=== PATIENT | female | born 1985 | race Hispanic/Latino ===

== ENCOUNTER 2017-11-03 16:33 | Emergency (ER) | payer OTHER, SELFPAY ==
[2017-11-03] MEDS ORDERED: NA CHLORIDE 0.9% 1,000 ML ONE (17:03)
[2017-11-03] MEDS ORDERED: ONDANSETRON 4 MG/2 ML VIAL ONE (17:03)
[2017-11-03 17:10] LABS: Urine Blood 2+ (NEG); Urine Glucose NEGATIVE (NEG); Urine Protein NEGATIVE (NEG); Urine Specific Gravity <1.005 (1.005-1.030)
[2017-11-03] MEDS ORDERED: FAMOTIDINE 20 MG/2 ML VIAL IV ONE (17:25)
[2017-11-03 17:47] LABS: Absolute Lymphocytes (CBC) 1.8 K/uL (0.7-4.9); Absolute Monocytes 0.2 K/uL (0.1-1.3); Absolute Neutrophil 8.1 K/uL (1.8-8.0); Basophils % 0.4 % (0-1.3); Eosinophils % 0.1 % (0-4.4); Hematocrit 33.5 % (36.0-45.0); Lymphocytes % 17.8 % (15.3-44.8); MCH 25.5 pg (27.0-35.0); MPV 8.5 fL (7.6-11.3); Monocytes % 2.2 % (3.3-12.3); RBC Red Blood Cell Count 4.19 M/uL (3.86-4.86)
[2017-11-03 17:49] LABS: Bicarbonate 28 mEq/L (21-31); Glucose Level 123 mg/dL (65-120); Lipase 31 U/L (22-51); Potassium 3.7 mEq/L (3.6-5.0); Sodium Level 137 mEq/L (135-145)
[2017-11-03 17:54] LABS: Urine Bacteria <20 /HPF (<20); Urine Culture Reflex Order NOT NEEDED; Urine RBC <5 /HPF (NONE SEEN)
[2017-11-03 17:56] LABS: ALT/SGPT 20 IU/L (10-60); AST/SGOT 22 IU/L (10-42); Albumin 4.4 g/dL (3.2-5.5); Alkaline Phosphatase 38 IU/L (42-121); Amylase Level 47 U/L (28-100); BUN Blood Urea Nitrogen 9 mg/dL (6-20); Bilirubin Direct 0.1 mg/dL (0-0.2); Protein, Total 7.8 g/dL (6.0-8.3)
[2017-11-03] MEDS ORDERED: MAGNE/ALUM HYDROXD 30 ML UCUP ONE (18:16)
[2017-11-03] MEDS ORDERED: LIDOCAINE VISCOUS 2% SOLN 15 ML UDC ONE (18:16)
--- NOTE | 2017-11-03 18:35 | RAD REPORT ---
EXAM DESCRIPTION: US - Abdomen Exam Limited - 11/03/2017 6:17 pm CLINICAL HISTORY: Abdominal pain. COMPARISON: 11-01-16. FINDINGS: The gallbladder demonstrates no gallstones. No pericholecystic fluid or gallbladder wall t hickening. The common bile duct is normal measuring 3 mm. The liver demonstrates no findings of intrahepatic biliary dilatation. IMPRESSION: Unremarkable examination.
--- NOTE | 2017-11-03 19:05 | ER ---
Nurse's Notes [facility] Name: Radha Cisneros Age: 32 yrs Sex: Female : 1985 Arrival Date: 11/03/2017 Time: 16:37 Bed 14 Private MD: Diagnosis: Diarrhea, unspecified;Epigastric pain Presentation: 11/03 16:42 Presenting complaint: Patient states: I have been on abx for an ear infection since la1 and now I am having diarrhea, pt denies vomiting. Transition of care: patient was not received from another setting of care. Onset of symptoms was November 03, 2017. Initial Sepsis Screen: Does the patient meet any 2 criteria? No. Patient's initial sepsis screen is negative. Does the patient have a suspected source of infection? No. Patient's initial sepsis screen is negative. Care prior to arrival: None. 16:42 Method Of Arrival: Ambulatory la1 16:42 Acuity: WAYLON 3 la1 Triage Assessment: 17:24 General: Appears in no apparent distress. uncomfortable, Behavior is calm, cooperative. em Pain: Complains of pain in right upper quadrant Pain currently is 7 out of 10 on a pain scale. Quality of pain is described as throbbing. GI: Abdomen is flat, Abd is soft X 4 quads Abdomen is tender to palpation in right upper quadrant. 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 - Social history:: Smoking status: Patient/guardian denies using tobacco. Screenin:24 Abuse screen: Denies threats or abuse. Nutritional screening: No deficits noted. em Tuberculosis screening: No symptoms or risk factors identified. Fall Risk None identified. Assessment: 17:05 General: Appears in no apparent distress. uncomfortable, Behavior is calm, cooperative. em Pain: Complains of pain in right upper quadrant Pain currently is 7 out of 10 on a pain scale. Neuro: Level of Consciousness is awake, alert, obeys commands, Oriented to person, place, time, situation, Reports dizziness, weakness. Cardiovascular: Denies chest pain, Capillary refill < 3 seconds Patient's skin is warm and dry. Respiratory: Airway is patent Respiratory effort is even, unlabored, Respiratory pattern is regular, symmetrical, Breath sounds are clear bilaterally. GI: Abdomen is flat, Bowel sounds present X 4 quads. Abd is soft X 4 quads Abdomen is tender to palpation in right upper quadrant. : Urine is clear. EENT: No signs and/or symptoms were reported regarding the EENT system. Derm: Skin is intact, Skin is pink, warm \T\ dry. Musculoskeletal: Range of motion: intact in all extremities. 17:29 Reassessment: Patient appears in no apparent distress at this time. I agree with above iw assessment by Dax Madison LVN. 18:00 Reassessment: Patient appears in no apparent distress at this time. Patient and/or em family updated on plan of care and expected duration. Pain level reassessed. Patient is alert, oriented x 3, equal unlabored respirations, skin warm/dry/pink. 18:55 Reassessment: Patient appears in no apparent distress at this time. pt given water for em PO challenge, tolerated well, c/o of pain, ARGENIS Gill notified. 19:20 Reassessment: Patient appears in no apparent distress at this time. Patient is alert, aa1 oriented x 3, equal unlabored respirations, skin warm/dry/pink. Discussed d/c \T\ f/u instructions with pt; denies questions or concerns at this time Patient states feeling better. Vital Signs: 16:43 BP 117 / 85; Pulse 85; Resp 16; Temp 97.8; Pulse Ox 100% on R/A; Weight 58.97 kg (R); la1 Height 5 ft. 6 in. (167.64 cm); 17:22 BP 119 / 83 Supine; Pulse 59; Resp 20; Pulse Ox 99% on R/A; em 17:22 BP 119 / 86 Sitting; Pulse 62; Resp 20; Pulse Ox 100% on R/A; em 17:22 BP 127 / 95 Standing; Pulse 75; Resp 18; Pulse Ox 100% on R/A; em 18:00 BP 115 / 78; Pulse 57; Resp 16; Pulse Ox 98% on R/A; Pain 7/10; em 18:44 BP 121 / 78; Pulse 56; Resp 18; Pulse Ox 100% on R/A; em 16:43 Body Mass Index 20.98 (58.97 kg, 167.64 cm) la1 ED Course: 16:37 Patient arrived in ED. mr 16:42 Triage completed. la1 16:43 Arm band placed on right wrist. la1 16:44 Jairo Garza PA is PHCP. cp 16:44 Henok Kay MD is Attending Physician. cp 16:44 Akua Burkett FNP-C is PHCP. snw 16:59 Dax Madison LVN is Primary Nurse. em 17:10 No provider procedures requiring assistance completed. Initial lab(s) drawn, by me, em sent to lab. Urine collected: clean catch specimen, clear. Inserted saline lock: 20 gauge in right antecubital area, using aseptic technique. Blood collected. 17:31 Patient has correct armband on for positive identification. Placed in gown. Bed in low em position. Call light in reach. Side rails up X2. Adult w/ patient. 17:35 Radiology exam delayed due to EKG being done. ap2 18:00 Ultrasound completed. Patient tolerated well. ap2 19:30 IV discontinued, intact, bleeding controlled, No redness/swelling at site. Pressure aa1 dressing applied. Administered Medications: 17:03 Drug: Zofran 4 mg Route: IVP; Site: right antecubital; hj 17:44 Follow up: Response: No adverse reaction hj 17:26 Drug: Pepcid 20 mg Route: IVP; Site: right antecubital; hj 17:44 Follow up: Response: No adverse reaction hj 17:33 Drug: NS 0.9% 1000 ml Route: IV; Rate: 1 bolus; Site: right antecubital; em 17:44 Follow up: IV Status: Completed infusion hj 18:22 Drug: GI Cocktail without - (Maalox Suspension 30 ml, Lidocaine Liquid 2 % 15 iw ml) Route: PO; 19:32 Follow up: Response: No adverse reaction; Marked relief of symptoms aa1 19:15 Drug: Bentyl 20 mg Route: PO; aa1 19:33 Follow up: Response: Medication administered at discharge. aa1 Outcome: 19:04 Discharge ordered by . cp 19:30 Discharged to home ambulatory. aa1 19:30 Condition: good 19:30 Discharge instructions given to patient, Instructed on discharge instructions, follow up and referral plans. medication usage, Demonstrated understanding of instructions, follow-up care, medications, Prescriptions given X 3. 19:33 Patient left the ED. aa1 Signatures: Dispatcher [employer] EDAnia Walls RN RN aa1 Akua Burkett, SUPERVISOR SHEARING-C SUPERVISOR SHEARING-Csnw Aminata Gonzalez mr Los, Dax, BOX WORKER BOX WORKER em Barb Hewitt, Crispin Somers RN RN RN la1 Daniel Crawford RN Jairo Cody PA PA cp Pena, Abigail ap2 Corrections: (The following items were deleted from the chart) 18:17 17:40 Radiology exam delayed due to EKG being done ap2 ap2 18:17 18:17 In radiology for Abdomen Limited+US.RAD.MONIZ. EDMS ap2
--- NOTE | 2017-11-03 19:05 | EDPHYS ---
Physician Documentation [facility] Name: Radha Cisneros Age: 32 yrs Sex: Female : 1985 Arrival Date: 11/03/2017 Time: 16:37 Bed 14 Private MD: ED Physician Henok Kay HPI: 11/03 17:02 This 32 yrs old Female presents to ER via Ambulatory with complaints of cp Abdominal Pain, Diarrhea, Ear Pain. 17:02 The patient presents with abdominal pain in the epigastric area. cp 17:02 Onset: The symptoms/episode began/occurred yesterday. Associated signs and symptoms: cp Pertinent positives: diarrhea since yesterday. 17:02 Patient reports she was started on oral azithromycin and prednisone this past cp for ear infection. Denies vomiting. Reports continuous diarrhea since yesterday and epigastric abdominal pain. 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 - Social history:: Smoking status: Patient/guardian denies using tobacco. ROS: 17:10 Constitutional: Negative for body aches, chills, fever, poor PO intake. cp 17:10 Eyes: Negative for injury, pain, redness, and discharge. cp 17:10 ENT: Negative for drainage from ear(s), ear pain, sore throat, difficulty swallowing, difficulty handling secretions. 17:10 Cardiovascular: Negative for edema, palpitations. 17:10 Respiratory: Negative for cough, shortness of breath, wheezing. 17:10 Abdomen/GI: Positive for abdominal pain, nausea, diarrhea, anorexia, of the epigastric area, Negative for vomiting, constipation, black/tarry stool, rectal bleeding. 17:10 Back: Negative for pain at rest, pain with movement, radiated pain. 17:10 : Positive for vaginal bleeding, Negative for urinary symptoms, flank pain. 17:10 Skin: Negative for cellulitis, rash. 17:10 Neuro: Negative for altered mental status, gait disturbance, headache, syncope, near syncope, weakness. 17:10 All other systems are negative. Exam: 17:23 Constitutional: The patient appears in no acute distress, alert, awake, cp non-diaphoretic, non-toxic, well developed, well nourished. 17:23 Head/Face: Normocephalic, atraumatic. Eyes: Pupils equal round and reactive to light, cp extra-ocular motions intact. Lids and lashes normal. Conjunctiva and sclera are non-icteric and not injected. Cornea within normal limits. Periorbital areas with no swelling, redness, or edema. ENT: Nares patent. No nasal discharge, no septal abnormalities noted. Tympanic membranes are normal and external auditory canals are clear. Oropharynx with no redness, swelling, or masses, exudates, or evidence of obstruction, uvula midline. Mucous membranes moist. Chest/axilla: Normal chest wall appearance and motion. Nontender with no deformity. No lesions are appreciated. 17:23 Cardiovascular: Rate: normal, Rhythm: regular. 17:23 Respiratory: the patient does not display signs of respiratory distress, Respirations: normal, no use of accessory muscles, no retractions, no splinting, no tachypnea, labored breathing, is not present, Breath sounds: are clear throughout, no decreased breath sounds, no stridor, no wheezing. 17:23 Abdomen/GI: Inspection: abdomen appears normal, Bowel sounds: active, all quadrants, Palpation: soft, in all quadrants, moderate abdominal tenderness, in the epigastric area, rebound tenderness, is not appreciated, voluntary guarding, is not appreciated, involuntary guarding, is not appreciated. 17:23 Back: CVA tenderness, is absent. 17:23 Skin: cellulitis, is not appreciated, no rash present. 17:23 Neuro: Orientation: to person, place \T\ time. Mentation: is normal, Cerebellar function: is grossly normal, Motor: moves all fours, strength is normal. 17:55 ECG was reviewed by the Attending Physician. cp Vital Signs: 16:43 BP 117 / 85; Pulse 85; Resp 16; Temp 97.8; Pulse Ox 100% on R/A; Weight 58.97 kg (R); la1 Height 5 ft. 6 in. (167.64 cm); 17:22 BP 119 / 83 Supine; Pulse 59; Resp 20; Pulse Ox 99% on R/A; em 17:22 BP 119 / 86 Sitting; Pulse 62; Resp 20; Pulse Ox 100% on R/A; em 17:22 BP 127 / 95 Standing; Pulse 75; Resp 18; Pulse Ox 100% on R/A; em 18:00 BP 115 / 78; Pulse 57; Resp 16; Pulse Ox 98% on R/A; Pain 7/10; em 18:44 BP 121 / 78; Pulse 56; Resp 18; Pulse Ox 100% on R/A; em 16:43 Body Mass Index 20.98 (58.97 kg, 167.64 cm) la1 MDM: 16:45 Patient medically screened. cp 18:00 Differential diagnosis: cholecystitis, Cholelithiasis, Peptic Ulcer Disease, Perf. cp Duodenal Ulcer, Perf. Gastric Ulcer, urinary tract infection, gastritis. 19:00 Data reviewed: vital signs, nurses notes, lab test result(s), EKG, radiologic studies, cp ultrasound. 19:00 Test interpretation: by ED physician or midlevel provider: ECG. cp 19:01 ED course: VSS. Labs and US reviewed. Recommend stopping antibiotic, which should cp improve diarrhea, and will discharge to home for continued monitoring. 19:01 Special discussion: Based on the patient's Hx, exam, and Dx evaluation, there is no cp indication for emergent surgery or inpatient Tx. It is understood by the patient/guardian that if the Sx's persist or worsen they need to return immediately for re-evaluation. 11/03 17:01 Order name: Amylase, Serum; Complete Time: 18:22 cp 11/03 17:01 Order name: Basic Metabolic Panel; Complete Time: 18:22 cp 11/03 18:22 Interpretation: Normal except: GLUC 123. cp 11/03 17:01 Order name: CBC with Diff; Complete Time: 18:22 cp 11/03 18:22 Interpretation: Normal except: HGB 10.7; HCT 33.5; MCH 25.5; MCHC 31.9; BREANN% 79.5; MN% cp 2.2; NEUT A 8.1. 11/03 17:01 Order name: Creatinine for Radiology; Complete Time: 18:22 cp 11/03 17:01 Order name: Hepatic Function; Complete Time: 18:22 cp 11/03 17:01 Order name: Lipase; Complete Time: 18:22 cp 11/03 17:01 Order name: Urine Microscopic Only; Complete Time: 18:22 cp 11/03 17:02 Order name: US Abdomen Limited; Complete Time: 18:36 cp 11/03 18:36 Interpretation: Report reviewed. cp 11/03 17:08 Order name: Urine Dipstick--Ancillary (enter results); Complete Time: 18:22 la1 11/03 17:08 Order name: Test, Serum; Complete Time: 18:22 la1 11/03 17:01 Order name: Urine Test (obtain specimen); Complete Time: 17:35 cp 11/03 17:01 Order name: IV Saline Lock; Complete Time: 17:35 cp 11/03 17:01 Order name: Labs collected and sent; Complete Time: 17:35 cp 11/03 17:01 Order name: Urine Dipstick-Ancillary (obtain specimen); Complete Time: 17:35 cp 11/03 17:02 Order name: NPO; Complete Time: 17:03 cp 11/03 17:28 Order name: EKG; Complete Time: 17:29 cp 11/03 17:28 Order name: EKG - Nurse/Tech; Complete Time: 17:59 cp 11/03 18:36 Order name: PO challenge; Complete Time: 18:47 cp EC:55 Rate is 56 beats/min. Rhythm is regular. TN interval is normal. QRS interval is normal. cp QT interval is normal. No ST changes noted. Interpreted by me. Reviewed by me. Administered Medications: 17:03 Drug: Zofran 4 mg Route: IVP; Site: right antecubital; hj 17:44 Follow up: Response: No adverse reaction hj 17:26 Drug: Pepcid 20 mg Route: IVP; Site: right antecubital; hj 17:44 Follow up: Response: No adverse reaction hj 17:33 Drug: NS 0.9% 1000 ml Route: IV; Rate: 1 bolus; Site: right antecubital; em 17:44 Follow up: IV Status: Completed infusion hj 18:22 Drug: GI Cocktail without - (Maalox Suspension 30 ml, Lidocaine Liquid 2 % 15 iw ml) Route: PO; 19:32 Follow up: Response: No adverse reaction; Marked relief of symptoms aa1 19:15 Drug: Bentyl 20 mg Route: PO; aa1 19:33 Follow up: Response: Medication administered at discharge. aa1 Disposition: 11/03/17 19:04 Discharged to Home. Impression: Diarrhea, unspecified, Epigastric pain. - Condition is Stable. - Discharge Instructions: Abdominal Pain, Adult, Food Choices to Help Relieve Diarrhea, Adult, Diarrhea. - Prescriptions for Bentyl 20 mg Oral Tablet - take 2 tablet by ORAL route every 6 hours As needed; 40 tablet. Zofran 4 mg Oral Tablet - take 1 tablet by ORAL route every 12 hours As needed; 20 tablet. Pepcid 20 mg Oral Tablet - take 1 tablet by ORAL route every 12 hours for 10 days; 20 tablet. - Work release form, Medication Reconciliation Form, Thank You Letter, Antibiotic Education, Prescription Opioid Use form. - Follow up: Private Physician; When: 1 - 2 days; Reason: if symptoms continue. - Problem is new. - Symptoms have improved. - Notes: stop antibiotic Addendum: 11/12/2017 05:56 Co-signature as Attending Physician, Henok Kay MD I agree with the assessment and w a plan of care. Signatures: Dispatcher [employer] Ania Gaona RN RN aa1 Dax Madison, PET CARE ATTENDANT PET CARE ATTENDANT em Barb Hewitt RN RN iw Attema, Lee, RN RN la1 Daniel Crawford RN Jairo Cody PA PA Henok Hartman MD MD in Corrections: (The following items were deleted from the chart) 11/03 19:33 19:04 11/03/2017 19:04 Discharged to Home. Impression: Diarrhea, unspecified; aa1 Epigastric pain. Condition is Stable. Forms are Medication Reconciliation Form, Thank You Letter, Antibiotic Education, Prescription Opioid Use. Follow up: Private Physician; When: 1 - 2 days; Reason: if symptoms continue. Problem is new. Symptoms have improved. cp
[2017-11-03] MEDS ORDERED: DICYCLOMINE HCL 10 MG CAP ONE (19:14)
--- NOTE | 2017-11-04 07:43 | EKG ---
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
== END 2017-11-03 19:33 | disposition home or self-care (01) ==
LOC: ER 16:33
DX: R19.7 Diarrhea, unspecified (principal)
CPT/HCPCS: 36415; 76705; 80048; 80076; 81003; 81015; 82150; 83690; 84703; 85025; 93005; 96374; 96375; 99284; J2405; J7030

== ENCOUNTER 2018-01-17 09:02 | Emergency (ER) | payer OTHER ==
[2018-01-17] MEDS ORDERED: NA CHLORIDE 0.9% 2,000 ML ONE (09:56)
[2018-01-17] MEDS ORDERED: ONDANSETRON 4 MG/2 ML VIAL ONE (09:56)
[2018-01-17] MEDS ORDERED: FENTANYL CITR 100 MCG/2 ML ONE (09:56)
[2018-01-17] MEDS ORDERED: KETOROLAC 30 MG/ML INJ ONE (09:56)
[2018-01-17 10:05] LABS: Absolute Lymphocytes (CBC) 2.6 K/uL (0.7-4.9); Absolute Monocytes 0.8 K/uL (0.1-1.3); Absolute Neutrophil 11.1 K/uL (1.8-8.0); Basophils % 0.2 % (0-1.3); Hematocrit 35.8 % (36.0-45.0); MCH 25.3 pg (27.0-35.0); MCV 78.5 fL (80-100); MPV 8.3 fL (7.6-11.3); Monocytes % 5.8 % (3.3-12.3); RBC Red Blood Cell Count 4.56 M/uL (3.86-4.86)
[2018-01-17 10:08] LABS: Urine Bacteria <20 /HPF (<20); Urine Culture Reflex Order NOT NEEDED; Urine RBC <5 /HPF (NONE SEEN)
--- NOTE | 2018-01-17 10:11 | RAD REPORT ---
EXAM DESCRIPTION: RAD - Chest Single View - 01/17/2018 10:04 am CLINICAL HISTORY: FEVER Chest pain. COMPARISON: No comparisons FINDINGS: Portable technique limits examination quality. The lungs are grossly clear. The heart is normal in size. No displaced fractures. IMPRESSION: No acute intrathoracic process suspected.
[2018-01-17 10:20] LABS: Bilirubin Direct 0.1 mg/dL (0-0.2); Bilirubin Total 0.6 mg/dL (0.2-1.0); Potassium 4.3 mmol/L (3.5-5.1); Protein, Total 8.2 g/dL (6.4-8.2)
--- NOTE | 2018-01-17 11:48 | RAD REPORT ---
EXAM DESCRIPTION: CTAbdomen Pelvis W Contrast - 01/17/2018 11:32 am CLINICAL HISTORY: Abdominal pain. ABD PAIN COMPARISON: Abdomen Pelvis W Contrast dated 11/05/2016; Abdomen Exam Limited dated 11/03/2017 TECHNIQUE: Biphasic CT imaging of the abdomen and pelvis was performed with 100 ml non-ionic IV cont rast. All CT scans are performed using dose optimization technique as appropriate and may include automated exposure control or mA/KV adjustment according to patient size. FINDINGS: The lung bases are clear. The liver, spleen, pancreas, adrenal glands and kidneys are within normal limits. No bowel obstruction, free air, intra-abdominal free fluid or abscess. The appendix is normal. No e vidence of significant lymphadenopathy. No suspicious bony findings. Uterus and cervix appears somewhat edematous/boggy. Trace pelvic free fluid. IMPRESSION: The uterus and cervix appears somewhat boggy with trace pelvic free fluid. Advise clinic al correlation for the possibility of gynecologic inflammation or infection.
[2018-01-17 12:06] LABS: Urine Blood TRACE (NEG); Urine Glucose NEGATIVE (NEG); Urine Protein NEGATIVE (NEG); Urine Specific Gravity 1.025 (1.005-1.030); Urine pH 6.5 (5.0-7.0)
[2018-01-17] MEDS ORDERED: DOXYCYCLINE 100 MG CAP PO ONE (12:09)
[2018-01-17] MEDS ORDERED: CEFTRIAXONE/SWI 2gm 2 GM/20 ML SYR IV ONE (12:15)
[2018-01-17] MEDS ORDERED: AZITHROMYCIN 250 MG TAB ONE (12:23)
--- NOTE | 2018-01-17 12:27 | EDPHYS ---
Physician Documentation [facility] Name: Radha Cisneros Age: 32 yrs Sex: Female : 1985 Arrival Date: 01/17/2018 Time: 09:06 Bed 15 Private MD: ED Physician Jairo Ramirez HPI: 01/17 09:35 This 32 yrs old Female presents to ER via Ambulatory with complaints of Back tami Pain, Fever, Urinary Problem - antibiotics not working. 09:35 The patient presents with pain that is acute. The symptoms are located in the left mid tami back and right mid back. Onset: The symptoms/episode began/occurred 5 day(s) ago. 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 - Social history:: Smoking status: Patient/guardian denies using tobacco, Patient/guardian denies using alcohol. - Ebola Screening: : Patient negative for fever greater than or equal to 101.5 degrees Fahrenheit, and additional compatible Ebola Virus Disease symptoms Patient denies exposure to infectious person Patient denies travel to an Ebola-affected area in the 21 days before illness onset. - Family history:: not pertinent. ROS: 09:35 Constitutional: Negative for fever, chills, and weight loss, Eyes: Negative for injury, tami pain, redness, and discharge, ENT: Negative for injury, pain, and discharge, Neck: Negative for injury, pain, and swelling, Cardiovascular: Negative for chest pain, palpitations, and edema, Respiratory: Negative for shortness of breath, cough, wheezing, and pleuritic chest pain, : Negative for injury, bleeding, discharge, and swelling, MS/Extremity: Negative for injury and deformity, Skin: Negative for injury, rash, and discoloration, Neuro: Negative for headache, weakness, numbness, tingling, and seizure, Psych: Negative for depression, anxiety, suicide ideation, homicidal ideation, and hallucinations, Allergy/Immunology: Negative for hives, rash, and allergies, Endocrine: Negative for neck swelling, polydipsia, polyuria, polyphagia, and marked weight changes, Hematologic/Lymphatic: Negative for swollen nodes, abnormal bleeding, and unusual bruising. 09:35 Abdomen/GI: Positive for abdominal pain. Exam: 09:35 Constitutional: This is a well developed, well nourished patient who is awake, alert, tami and in no acute distress. Head/Face: Normocephalic, atraumatic. Eyes: Pupils equal round and reactive to light, extra-ocular motions intact. Lids and lashes normal. Conjunctiva and sclera are non-icteric and not injected. Cornea within normal limits. Periorbital areas with no swelling, redness, or edema. ENT: Nares patent. No nasal discharge, no septal abnormalities noted. Tympanic membranes are normal and external auditory canals are clear. Oropharynx with no redness, swelling, or masses, exudates, or evidence of obstruction, uvula midline. Mucous membranes moist. Neck: Trachea midline, no thyromegaly or masses palpated, and no cervical lymphadenopathy. Supple, full range of motion without nuchal rigidity, or vertebral point tenderness. No Meningismus. Chest/axilla: Normal chest wall appearance and motion. Nontender with no deformity. No lesions are appreciated. Cardiovascular: Regular rate and rhythm with a normal S1 and S2. No gallops, murmurs, or rubs. Normal PMI, no JVD. No pulse deficits. Respiratory: Lungs have equal breath sounds bilaterally, clear to auscultation and percussion. No rales, rhonchi or wheezes noted. No increased work of breathing, no retractions or nasal flaring. Female : Normal external genitalia. Skin: Warm, dry with normal turgor. Normal color with no rashes, no lesions, and no evidence of cellulitis. MS/ Extremity: Pulses equal, no cyanosis. Neurovascular intact. Full, normal range of motion. Neuro: Awake and alert, GCS 15, oriented to person, place, time, and situation. Cranial nerves II-XII grossly intact. Motor strength 5/5 in all extremities. Sensory grossly intact. Cerebellar exam normal. Normal gait. Psych: Awake, alert, with orientation to person, place and time. Behavior, mood, and affect are within normal limits. 09:35 Abdomen/GI: Inspection: abdomen appears normal, Bowel sounds: active, Palpation: mild abdominal tenderness, moderate abdominal tenderness, in the right upper quadrant and left upper quadrant, Liver: no appreciated palpable abnormalities, Hernia: not appreciated. 12:31 : Pelvic Exam: External exam: is normal, Speculum exam: no bleeding is noted, snw cervicitis present, os that is closed, bimanual exam reveals cervical motion tenderness, no adnexa tenderness or masses bilaterally, discharge, yellow, the photographic technician was present for the exam. Vital Signs: 09:20 BP 113 / 27; Pulse 73; Resp 18; Temp 98.1(O); Pulse Ox 100% ; Weight 58.06 kg; Height 5 hj ft. 6 in. (167.64 cm); Pain 6/10; 10:40 BP 121 / 82; Pulse 65; Resp 18; Pulse Ox 100% on R/A; hj 09:20 Body Mass Index 20.66 (58.06 kg, 167.64 cm) hj MDM: 09:08 Patient medically screened. [facility] 09:37 Data reviewed: vital signs, nurses notes, lab test result(s), EKG, radiologic studies, [facility] CT scan, plain films. 01/17 09:23 Order name: Urine Microscopic Only; Complete Time: 10:28 01/17 09:23 Order name: Urine Culture 01/17 09:32 Order name: Urine Dipstick--Ancillary (enter results); Complete Time: 12:25 01/17 09:32 Order name: Urine --Ancillary (enter results); Complete Time: 12:25 01/17 09:34 Order name: Amylase, Serum; Complete Time: 10:28 [facility] 01/17 09:34 Order name: Basic Metabolic Panel; Complete Time: 10:28 [facility] 01/17 09:34 Order name: CBC with Diff; Complete Time: 10:28 [facility] 01/17 09:34 Order name: Creatinine for Radiology; Complete Time: 10:28 [facility] 01/17 09:34 Order name: Hepatic Function; Complete Time: 10:28 [facility] 01/17 09:34 Order name: Lipase; Complete Time: 10:28 [facility] 01/17 09:34 Order name: Blood Culture Adult (2) [facility] 01/17 12:35 Order name: GC (GONORR/CHLAMYDIA) Probe 01/17 12:35 Order name: Wet Prep 01/17 09:23 Order name: Urine Dipstick-Ancillary (obtain specimen); Complete Time: 09:23 01/17 09:23 Order name: Urine Test (obtain specimen); Complete Time: 09: 01/17 09:34 Order name: IV Saline Lock; Complete Time: 10:03 [facility] 01/17 09:34 Order name: Labs collected and sent; Complete Time: 10:03 [facility] 01/17 09:34 Order name: Chest Single View XRAY; Complete Time: 10:28 [facility] 01/17 09:34 Order name: CT Abd/Pelvis - W/Contrast; Complete Time: 12:25 [facility] 01/17 12:02 Order name: Pelvic Exam Setup; Complete Time: 12:04 [facility] Administered Medications: 09:45 Drug: NS 0.9% 1000 ml Route: IV; Rate: 1 bolus; Site: right antecubital; hj 10:05 Follow up: IV Status: Completed infusion hj 09:45 Drug: NS 0.9% 1000 ml Route: IV; Rate: 125 ml/hr; Site: right antecubital; hj 10:05 Follow up: IV Status: Infusion continued hj 09:45 Drug: fentaNYL (PF) 25 mcg Route: IVP; Site: right antecubital; hj 10:05 Follow up: Response: No adverse reaction; Pain is decreased hj 09:45 Drug: Zofran 4 mg Route: IVP; Site: right antecubital; hj 10:05 Follow up: Response: No adverse reaction hj 09:45 Drug: TORadol 30 mg Route: IVP; Site: right antecubital; hj 10:04 Follow up: Response: No adverse reaction hj 12:02 Drug: Doxycycline 200 mg Route: PO; hj 12:17 Follow up: Response: No adverse reaction hj 12:16 Drug: Zithromax 1 grams Route: PO; hj 12:22 Follow up: Response: No adverse reaction hj 12:17 Drug: fentaNYL (PF) 25 mcg Route: IVP; Site: right antecubital; hj 12:17 Follow up: Response: No adverse reaction; Pain is decreased hj 12:22 Drug: Rocephin - (cefTRIAXone) 2 grams Route: IVPB; Infused Over: 30 mins; Site: right hj antecubital; 12:55 Follow up: IV Status: Completed infusion Disposition: 01/17/18 12:26 Discharged to Home. Impression: Pelvic and perineal pain. - Condition is Stable. - Discharge Instructions: Cervicitis, Pelvic Pain, Female, Pelvic Pain, Female, Uobi-ej-Xchy, Abdominal Pain, Adult, [id number], Cervicitis, [id number]. - Prescriptions for Ibuprofen 600 mg Oral Tablet - take 1 tablet by ORAL route every 8 hours As needed take with food; 21 tablet. Doxycycline Hyclate 100 mg Oral Tablet - take 1 tablet by ORAL route every 12 hours; 20 tablet. Flagyl 500 mg Oral Tablet - take 1 tablet by ORAL route every 8 hours for 10 days; 30 tablet. - Medication Reconciliation Form, Thank You Letter, Antibiotic Education, Prescription Opioid Use, Work release form, Family Work Release form. - Follow up: Private Physician; When: 2 - 3 days; Reason: Recheck today's complaints, Continuance of care, Re-evaluation by your physician. Follow up: Adenike Abarca MD; When: 2 - 3 days; Reason: Recheck today's complaints, Re-evaluation by your physician. - Problem is new. - Symptoms have improved. Addendum: 01/20/2018 10:06 Co-signature as Attending Physician, Jairo Ramirez MD I agree with the assessment and c ornelas plan of care. Signatures: Dispatcher [employer] EDJairo Lux MD MD cha Therrien, Shelly, MARCELO-C VEGETABLE I FARMWORKER-CsnDaniel Perez RN RN hj Corrections: (The following items were deleted from the chart) 01/17 12:54 12:26 01/17/2018 12:26 Discharged to Home. Impression: Pelvic and perineal pain. hj Condition is Stable. Forms are Medication Reconciliation Form, Thank You Letter, Antibiotic Education, Prescription Opioid Use. Follow up: Private Physician; When: 2 - 3 days; Reason: Recheck today's complaints, Continuance of care, Re-evaluation by your physician. Follow up: Adenike Abarca; When: 2 - 3 days; Reason: Recheck today's complaints, Re-evaluation by your physician. Problem is new. Symptoms have improved. tami
--- NOTE | 2018-01-17 12:27 | ER ---
Nurse's Notes [facility] Name: Radha Cisneros Age: 32 yrs Sex: Female : 1985 Arrival Date: 01/17/2018 Time: 09:06 Bed 15 Private MD: Diagnosis: Pelvic and perineal pain Presentation: 01/17 09:14 Presenting complaint: Patient states: 6 weeks ago, went to a [facility] clinic, diagnosed hj with UTI and was Rx with prednisone, Bactrim but it seems its not working, my fever is back on and off, my lower back hurts; denies nausea and vomiting;. Transition of care: patient was not received from another setting of care. Onset of symptoms was January 17, 2018. Risk Assessment: Do you want to hurt yourself or someone else? Patient reports no desire to harm self or others. Initial Sepsis Screen: Does the patient meet any 2 criteria? No. Patient's initial sepsis screen is negative. Does the patient have a suspected source of infection? No. Patient's initial sepsis screen is negative. Care prior to arrival: None. 09:14 Method Of Arrival: Ambulatory 09:14 Acuity: WAYLON 3 hj Triage Assessment: 09:19 General: Appears in no apparent distress. uncomfortable, Behavior is calm, cooperative, hj appropriate for age. Pain: Complains of pain in suprapubic area Pain radiates to left low back and right low back Pain currently is 5 out of 10 on a pain scale. EENT: No signs and/or symptoms were reported regarding the EENT system. Neuro: Level of Consciousness is awake, alert, obeys commands, Oriented to person, place, time, situation, Appropriate for age. Cardiovascular: Capillary refill < 3 seconds Patient's skin is warm and dry. Respiratory: Airway is patent Respiratory effort is even, unlabored, Respiratory pattern is regular, symmetrical. GI: No signs and/or symptoms were reported involving the gastrointestinal system. : No signs and/or symptoms were reported regarding the genitourinary system. Derm: No signs and/or symptoms reported regarding the dermatologic system. Musculoskeletal: Circulation, motion, and sensation intact. Capillary refill < 3 seconds. 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 - Social history:: Smoking status: Patient/guardian denies using tobacco, Patient/guardian denies using alcohol. - Ebola Screening: : Patient negative for fever greater than or equal to 101.5 degrees Fahrenheit, and additional compatible Ebola Virus Disease symptoms Patient denies exposure to infectious person Patient denies travel to an Ebola-affected area in the 21 days before illness onset. - Family history:: not pertinent. Screenin:18 Abuse screen: Denies threats or abuse. Denies injuries from another. Nutritional hj screening: No deficits noted. Tuberculosis screening: No symptoms or risk factors identified. Fall Risk None identified. Assessment: :18 Reassessment: see triage for assessment;. hj 10:39 Reassessment: Patient and/or family updated on plan of care and expected duration. Pain hj level reassessed. Patient is alert, oriented x 3, equal unlabored respirations, skin warm/dry/pink. family in room; awaiting CT:. 11:41 Reassessment: Patient and/or family updated on plan of care and expected duration. Pain hj level reassessed. Patient is alert, oriented x 3, equal unlabored respirations, skin warm/dry/pink. back from CT;. Vital Signs: 09:20 BP 113 / 27; Pulse 73; Resp 18; Temp 98.1(O); Pulse Ox 100% ; Weight 58.06 kg; Height 5 hj ft. 6 in. (167.64 cm); Pain 6/10; 10:40 BP 121 / 82; Pulse 65; Resp 18; Pulse Ox 100% on R/A; hj 09:20 Body Mass Index 20.66 (58.06 kg, 167.64 cm) ED Course: 09:06 Patient arrived in ED. as 09:08 Daniel Crawford, MAGDA is Primary Nurse. hj 09:08 Jairo Ramirez MD is Attending Physician. [facility] 09:17 Triage completed. hj 09:20 Arm band placed on right wrist. hj 09:22 Patient has correct armband on for positive identification. Bed in low position. Call light in reach. Side rails up X 1. Adult w/ patient. 09:33 Urine collected: clean catch specimen, tavares colored. dh3 09:45 Inserted saline lock: 22 gauge in right antecubital area, using aseptic technique. hj Blood collected. 09:45 Initial lab(s) drawn, by me, sent to lab. First set of blood cultures drawn by me. hj 09:50 Second set of blood cultures drawn. hj 10:00 X-ray completed. Portable x-ray completed in exam room. Patient tolerated procedure jb2 well. 10:03 Blood Culture Adult (2) Sent. hj 10:04 Chest Single View XRAY In Process Unspecified. EDMS 10:04 Amylase, Serum Sent. hj 10:04 Basic Metabolic Panel Sent. hj 10:04 CBC with Diff Sent. hj 10:04 Creatinine for Radiology Sent. hj 10:04 Hepatic Function Sent. hj 10:04 Lipase Sent. hj 10:04 Urine Microscopic Only Sent. hj 10:04 Urine Culture Sent. hj 10:04 Urine Microscopic Only Sent. hj 11:[address] via wheelchair. sw 11:33 CT Abd/Pelvis - W/Contrast In Process Unspecified. EDMS 12:26 Adenike Abarca MD is Referral Physician. tami 12:41 Wet prep swab sent to lab. G/C probe sent to lab. dh3 12:50 No provider procedures requiring assistance completed. IV discontinued, intact, hj bleeding controlled, No redness/swelling at site. Pressure dressing applied. Administered Medications: 09:45 Drug: NS 0.9% 1000 ml Route: IV; Rate: 1 bolus; Site: right antecubital; hj 10:05 Follow up: IV Status: Completed infusion hj :45 Drug: NS 0.9% 1000 ml Route: IV; Rate: 125 ml/hr; Site: right antecubital; hj 10:05 Follow up: IV Status: Infusion continued hj 09:45 Drug: fentaNYL (PF) 25 mcg Route: IVP; Site: right antecubital; hj 10:05 Follow up: Response: No adverse reaction; Pain is decreased hj 09:45 Drug: Zofran 4 mg Route: IVP; Site: right antecubital; hj 10:05 Follow up: Response: No adverse reaction hj 09:45 Drug: TORadol 30 mg Route: IVP; Site: right antecubital; hj 10:04 Follow up: Response: No adverse reaction hj 12:02 Drug: Doxycycline 200 mg Route: PO; hj 12:17 Follow up: Response: No adverse reaction hj 12:16 Drug: Zithromax 1 grams Route: PO; hj 12:22 Follow up: Response: No adverse reaction hj 12:17 Drug: fentaNYL (PF) 25 mcg Route: IVP; Site: right antecubital; hj 12:17 Follow up: Response: No adverse reaction; Pain is decreased hj 12:22 Drug: Rocephin - (cefTRIAXone) 2 grams Route: IVPB; Infused Over: 30 mins; Site: right hj antecubital; 12:55 Follow up: IV Status: Completed infusion Outcome: 12:26 Discharge ordered by . tami 12:50 Discharged to home ambulatory, with family. 12:50 Condition: stable 12:50 Discharge instructions given to patient, family, Instructed on discharge instructions, follow up and referral plans. medication usage, Demonstrated understanding of instructions, follow-up care, medications, Prescriptions given X 3. 12:54 Patient left the ED. Signatures: Dispatcher [employer] EDMS Jairo Ramirez MD MD cha Buechter, Jesse jb2 Martinez, Amelia as Warren, Shannon sw Joaquin, Henry, RN RN hj Herrera, [facility]
[2018-01-20 06:52] LABS: C.trachomatis RNA,TMA Not Detected (Not Detected)
== END 2018-01-17 12:54 | disposition home or self-care (01) ==
LOC: ER 09:02
DX: R10.2 Pelvic and perineal pain (principal); R56.9 Unspecified convulsions
CPT/HCPCS: 36415; 71045; 74177; 80048; 80076; 81003; 81015; 81025; 82150; 83690; 85025; 87040; 87086; 87088; 87210; 87490; 87590; 96365; 96375; 99284; J0696; J2405; J3010; J7030; Q9967

== ENCOUNTER 2018-05-13 06:57 | Emergency (ER) | payer OTHER ==
--- NOTE | 2018-05-13 08:18 | ER ---
Nurse's Notes [facility] Name: Radha Cisneros Age: 33 yrs Sex: Female : 1985 Arrival Date: 05/13/2018 Time: 06:58 Bed 15 Private MD: Diagnosis: Acute nasopharyngitis [common cold] Presentation: 05/13 07:10 Presenting complaint: Patient states: Fever, cough, aches x 1 week, doctor prescribed jl7 predisone, antibiotics and benzonatate, but I'm still feeling bad. Fever last night was 103.9. Took 1000mg Tylenol last night at 0200. Transition of care: patient was not received from another setting of care. Onset of symptoms was May 06, 2018. Risk Assessment: Do you want to hurt yourself or someone else? Patient reports no desire to harm self or others. Initial Sepsis Screen: Does the patient meet any 2 criteria? No. Patient's initial sepsis screen is negative. Does the patient have a suspected source of infection? No. Patient's initial sepsis screen is negative. Care prior to arrival: None. 07:10 Method Of Arrival: Ambulatory 7 07:10 Acuity: WAYLON 4 jl7 Triage Assessment: 07:13 General: Appears in no apparent distress. uncomfortable, Behavior is calm, cooperative, jl7 appropriate for age. Pain: Complains of pain in throat, left ear, [place]OW[place] Pain currently is 7 out of 10 on a pain scale. 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 - Social history:: Smoking status: Patient/guardian denies using tobacco. - Ebola Screening: : No symptoms or risks identified at this time. Screenin:33 Abuse screen: Denies threats or abuse. Nutritional screening: No deficits noted. ls4 Tuberculosis screening: No symptoms or risk factors identified. Fall Risk None identified. Assessment: 08:02 General: Appears uncomfortable, well groomed, well developed, Behavior is calm, ls4 cooperative. Neuro: No deficits noted. Cardiovascular: No deficits noted. Respiratory: No deficits noted. GI: Abdomen is flat, Bowel sounds present X 4 quads. Abd is soft and non tender X 4 quads. : No deficits noted. Derm: No deficits noted. Musculoskeletal: No deficits noted. 08:48 Reassessment: Patient appears in no apparent distress at this time. Patient and/or ls4 family updated on plan of care and expected duration. Pain level reassessed. 08:48 Pain: Complains of pain in generalized Pain currently is 3 out of 10 on a pain scale. ls4 Vital Signs: 07:13 BP 132 / 83; Pulse 84; Resp 16 S; Temp 98.7(O); Pulse Ox 99% on R/A; Weight 68.04 kg jl7 (R); Height 5 ft. 6 in. (167.64 cm) (R); Pain 7/10; 08:15 BP 122 / 88; Pulse 80; Resp 16; Temp 98.6; Pulse Ox 99% on R/A; Pain 5/10; ls4 08:50 BP 120 / 90; Pulse 69; Resp 16; Temp 98.5; Pulse Ox 99% on R/A; Pain 3/10; ls4 07:13 Body Mass Index 24.21 (68.04 kg, 167.64 cm) jl7 ED Course: 06:58 Patient arrived in ED. am2 07:12 Triage completed. jl7 07:13 Arm band placed on right wrist. jl7 07:16 Jason Burnham PA is PHCP. jr8 07:16 Jairo Ramirez MD is Attending Physician. jr8 07:26 Georgette Ascencio, MAGDA is Primary Nurse. ls4 07:33 Patient has correct armband on for positive identification. Bed in low position. Call ls4 light in reach. Side rails up X 1. 07:33 No provider procedures requiring assistance completed. ls4 08:01 Flu Sent. ls4 08:02 Flu and/or RSV swab sent to lab. ls4 08:52 Patient did not have IV access during this emergency room visit. ls4 Administered Medications: 08:32 Drug: TORadol 60 mg Route: IM; Site: left deltoid; ls4 08:48 Follow up: Response: No adverse reaction; Pain is decreased ls4 Outcome: 08:17 Discharge ordered by . jr8 08:51 Discharged to home ambulatory. ls4 08:51 Condition: stable 08:51 Discharge instructions given to patient, Instructed on discharge instructions, follow up and referral plans. no drinking with medication, no driving heavy equipment, medication usage, Demonstrated understanding of instructions, follow-up care, medications, Prescriptions given X 1. 08:51 Patient left the ED. ls4 Signatures: Jason Burnham PA PA jr8 Leal, Jahala RN RN jl7 Sayda Prado Lisa, RN RN ls4
--- NOTE | 2018-05-13 08:18 | EDPHYS ---
Physician Documentation [facility] Name: Radha Cisneros Age: 33 yrs Sex: Female : 1985 Arrival Date: 05/13/2018 Time: 06:58 Bed 15 Private MD: ED Physician Jairo Ramirez HPI: 05/13 07:46 This 33 yrs old Female presents to ER via Ambulatory with complaints of Flu jr8 Symptoms. 07:46 Patient with one week history of sinus congestion, fevers, sore throat, body aches, jr8 chills, and nausea. Seen by urgent care and given Augmentin, Tessalon pearls, and prednisone. No relief as of yet . Severity of symptoms: At their worst the symptoms were mild in the emergency department the symptoms are unchanged. The patient has not experienced similar symptoms in the past. The patient has not recently seen a physician. 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 - Social history:: Smoking status: Patient/guardian denies using tobacco. - Ebola Screening: : No symptoms or risks identified at this time. ROS: 07:46 Eyes: Negative for injury, pain, redness, and discharge, Neck: Negative for injury, jr8 pain, and swelling, Cardiovascular: Negative for chest pain, palpitations, and edema, Back: Negative for injury and pain, MS/Extremity: Negative for injury and deformity, Skin: Negative for injury, rash, and discoloration, Neuro: Negative for headache, weakness, numbness, tingling, and seizure. 07:46 Constitutional: Positive for body aches, chills, fever, malaise. 07:46 ENT: Positive for ear pain, rhinorrhea, sinus congestion, sore throat. 07:46 Respiratory: Positive for cough, Negative for shortness of breath, sputum production, wheezing. 07:46 Abdomen/GI: Positive for nausea, Negative for abdominal pain, vomiting, diarrhea, constipation, abdominal cramps, abdominal distension, anorexia, dysphagia, hematemesis, black/tarry stool, rectal pain, rectal bleeding, bowel incontinence, flatulence. Exam: 07:46 Head/Face: Normocephalic, atraumatic. Eyes: Pupils equal round and reactive to light, jr8 extra-ocular motions intact. Lids and lashes normal. Conjunctiva and sclera are non-icteric and not injected. Cornea within normal limits. Periorbital areas with no swelling, redness, or edema. ENT: Nares patent. Turbinates swollen and mildy erythermatic. No nasal discharge, no septal abnormalities noted. Tympanic membranes are normal and external auditory canals are clear. Oropharynx with no redness, swelling, or masses, exudates, or evidence of obstruction, uvula midline. Mucous membranes moist. Neck: Trachea midline, no thyromegaly or masses palpated, and no cervical lymphadenopathy. Supple, full range of motion without nuchal rigidity, or vertebral point tenderness. No Meningismus. Cardiovascular: Regular rate and rhythm with a normal S1 and S2. No gallops, murmurs, or rubs. Normal PMI, no JVD. No pulse deficits. Respiratory: Lungs have equal breath sounds bilaterally, clear to auscultation and percussion. No rales, rhonchi or wheezes noted. No increased work of breathing, no retractions or nasal flaring. Abdomen/GI: Soft, non-tender, with normal bowel sounds. No distension or tympany. No guarding or rebound. No evidence of tenderness throughout. Back: No spinal tenderness. No costovertebral tenderness. Full range of motion. Skin: Warm, dry with normal turgor. Normal color with no rashes, no lesions, and no evidence of cellulitis. MS/ Extremity: Pulses equal, no cyanosis. Neurovascular intact. Full, normal range of motion. Neuro: Awake and alert, GCS 15, oriented to person, place, time, and situation. Cranial nerves II-XII grossly intact. Motor strength 5/5 in all extremities. Sensory grossly intact. Cerebellar exam normal. Normal gait. Vital Signs: 07:13 BP 132 / 83; Pulse 84; Resp 16 S; Temp 98.7(O); Pulse Ox 99% on R/A; Weight 68.04 kg jl7 (R); Height 5 ft. 6 in. (167.64 cm) (R); Pain 7/10; 08:15 BP 122 / 88; Pulse 80; Resp 16; Temp 98.6; Pulse Ox 99% on R/A; Pain 5/10; ls4 08:50 BP 120 / 90; Pulse 69; Resp 16; Temp 98.5; Pulse Ox 99% on R/A; Pain 3/10; ls4 07:13 Body Mass Index 24.21 (68.04 kg, 167.64 cm) jl7 MDM: 07:16 Patient medically screened. jr8 08:16 Data reviewed: vital signs, nurses notes, lab test result(s), and as a result, I will jr8 discharge patient. Data interpreted: Pulse oximetry: on room air is 99 %. Interpretation: normal. Counseling: I had a detailed discussion with the patient and/or guardian regarding: the historical points, exam findings, and any diagnostic results supporting the discharge/admit diagnosis, lab results, the need for outpatient follow up, a family practitioner, to return to the emergency department if symptoms worsen or persist or if there are any questions or concerns that arise at home. 05/13 07:46 Order name: Flu jr8 05/13 08:16 Order name: Influenza Screen (A ; Complete Time: 08:16 EDMS Administered Medications: 08:32 Drug: TORadol 60 mg Route: IM; Site: left deltoid; ls4 08:48 Follow up: Response: No adverse reaction; Pain is decreased ls4 Disposition: 15:27 Co-signature as Attending Physician, Jairo Ramirez MD I agree with the assessment and tami plan of care. Disposition: 05/13/18 08:17 Discharged to Home. Impression: Acute nasopharyngitis [common cold]. - Condition is Stable. - Discharge Instructions: Antibiotic Resistance, Upper Respiratory Infection, Adult, Viral Respiratory Infection. - Prescriptions for Guaifenesin AC 10- 100 mg/5 mL Oral Liquid - take 10 milliliter by ORAL route every 4 hours As needed; 240 milliliter. - Medication Reconciliation Form, Thank You Letter, Antibiotic Education, Prescription Opioid Use, Work release form form. - Follow up: Private Physician; When: As needed; Reason: If symptoms return, Recheck today's complaints, Continuance of care, Re-evaluation by your physician. - Problem is new. - Symptoms are unchanged. Signatures: Dispatcher [employer] Jairo Oates MD MD cha Roszak, Josh, PA PA jr8 Ghulam Stephens, RN RN jl7 Georgette Ascencio, RN RN ls4 Corrections: (The following items were deleted from the chart) 08:51 08:17 05/13/2018 08:17 Discharged to Home. Impression: Acute nasopharyngitis [common ls4 cold]. Condition is Stable. Forms are Medication Reconciliation Form, Thank You Letter, Antibiotic Education, Prescription Opioid Use. Follow up: Private Physician; When: As needed; Reason: If symptoms return, Recheck today's complaints, Continuance of care, Re-evaluation by your physician. Problem is new. Symptoms are unchanged. jr8
[2018-05-13] MEDS ORDERED: KETOROLAC 30 MG/ML INJ ONE (08:39)
== END 2018-05-13 08:51 | disposition home or self-care (01) ==
LOC: ER 06:57
DX: J00 Acute nasopharyngitis [common cold] (principal); G40.909 Epilepsy, unspecified, not intractable, without status epilepticus
CPT/HCPCS: 87804; 96372; 99283

== ENCOUNTER 2022-01-16 06:37 | Emergency (ER) | payer BC, OTHER ==
[2022-01-16] MEDS ORDERED: AZITHROMYCIN 250 MG TAB ONE (08:11)
[2022-01-16 08:15] LABS: Urine Blood Negative (Negative); Urine Glucose Negative (Negative); Urine Protein Trace (Negative); Urine Specific Gravity 1.025 (1.005-1.030); Urine pH 6.5 (5.0-7.0)
[2022-01-16 08:38] LABS: SARS-CoV-2 Antigen Rapid Res Negative (Negative)
--- NOTE | 2022-01-16 08:57 | EDPHYS ---
Physician Documentation [facility] Name: Radha Louis Age: 36 yrs Sex: Female : 1985 Arrival Date: 01/16/2022 Time: 06:42 Bed 7 Private MD: ED Physician Jairo Ramirez HPI: 01/16 07:57 This 36 yrs old Female presents to ER via Ambulatory with complaints of Sore tami Throat, Fever. 07:57 The patient presents with sore throat. The patient describes throat pain as burning. tami Onset: The symptoms/episode began/occurred 2 day(s) ago. Severity of symptoms: At their worst the symptoms were mild, in the emergency department the symptoms are unchanged. Modifying factors: The symptoms are alleviated by nothing, the symptoms are aggravated by nothing. Associated signs and symptoms: The patient has no apparent associated signs or symptoms. The patient has not experienced similar symptoms in the past. 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 - Social history:: Smoking status: Patient denies any tobacco usage or history of. - Family history:: not pertinent. ROS: 07:57 Constitutional: Negative for fever, chills, and weight loss, Eyes: Negative for injury, tami pain, redness, and discharge, Neck: Negative for injury, pain, and swelling, Cardiovascular: Negative for chest pain, palpitations, and edema, Respiratory: Negative for shortness of breath, cough, wheezing, and pleuritic chest pain, Abdomen/GI: Negative for abdominal pain, nausea, vomiting, diarrhea, and constipation, Back: Negative for injury and pain, : Negative for injury, bleeding, discharge, and swelling, MS/Extremity: Negative for injury and deformity, Skin: Negative for injury, rash, and discoloration, Neuro: Negative for headache, weakness, numbness, tingling, and seizure, Endocrine: Negative for neck swelling, polydipsia, polyuria, polyphagia, and marked weight changes, Hematologic/Lymphatic: Negative for swollen nodes, abnormal bleeding, and unusual bruising. 07:57 ENT: Positive for rhinorrhea, sore throat. Exam: 07:57 Constitutional: This is a well developed, well nourished patient who is awake, alert, tami and in no acute distress. Head/Face: Normocephalic, atraumatic. Eyes: Pupils equal round and reactive to light, extra-ocular motions intact. Lids and lashes normal. Conjunctiva and sclera are non-icteric and not injected. Cornea within normal limits. Periorbital areas with no swelling, redness, or edema. Neck: Trachea midline, no thyromegaly or masses palpated, and no cervical lymphadenopathy. Supple, full range of motion without nuchal rigidity, or vertebral point tenderness. No Meningismus. Chest/axilla: Normal chest wall appearance and motion. Nontender with no deformity. No lesions are appreciated. Cardiovascular: Regular rate and rhythm with a normal S1 and S2. No gallops, murmurs, or rubs. Normal PMI, no JVD. No pulse deficits. Respiratory: Lungs have equal breath sounds bilaterally, clear to auscultation and percussion. No rales, rhonchi or wheezes noted. No increased work of breathing, no retractions or nasal flaring. Abdomen/GI: Soft, non-tender, with normal bowel sounds. No distension or tympany. No guarding or rebound. No evidence of tenderness throughout. Back: No spinal tenderness. No costovertebral tenderness. Full range of motion. Skin: Warm, dry with normal turgor. Normal color with no rashes, no lesions, and no evidence of cellulitis. MS/ Extremity: Pulses equal, no cyanosis. Neurovascular intact. Full, normal range of motion. Neuro: Awake and alert, GCS 15, oriented to person, place, time, and situation. Cranial nerves II-XII grossly intact. Motor strength 5/5 in all extremities. Sensory grossly intact. Cerebellar exam normal. Normal gait. Psych: Awake, alert, with orientation to person, place and time. Behavior, mood, and affect are within normal limits. 07:57 ENT: Posterior pharynx: Tonsils: bilaterally enlarged, with erythema, Uvula: normal, midline, swelling, that is mild, erythema, that is mild, exudate, is not appreciated, peritonsillar mass, is not appreciated. Vital Signs: 06:50 BP 115 / 87; Pulse 61; Resp 18; Temp 97.7(TE); Pulse Ox 100% ; Weight 70.31 kg; Height 1 5 ft. 6 in. (167.64 cm); Pain 7/10; 08:55 BP 122 / 84; Pulse 52; Resp 14 S; Pulse Ox 99% ; jg9 06:50 Body Mass Index 25.02 (70.31 kg, 167.64 cm) [facility] MDM: 07:23 Patient medically screened. [facility] 07:57 Differential diagnosis: influenza, laryngitis, pharyngitis, tonsillitis, upper tami respiratory infection, uvulitis, viral syndrome. Data reviewed: vital signs, nurses notes, lab test result(s), Flu: negative. 01/16 07:39 Order name: SARS RAPID; Complete Time: 08:49 [facility] 01/16 07:39 Order name: Flu; Complete Time: 08:49 [facility] 01/16 07:39 Order name: Strep; Complete Time: 08:49 [facility] 01/16 08:15 Order name: Urine Dipstick-Ancillary; Complete Time: 08:49 EDMS 01/16 08:20 Order name: Urine --Ancillary (enter results) 01/16 07:57 Order name: Urine Dipstick-Ancillary (obtain specimen); Complete Time: 08:15 [facility] 01/16 07:57 Order name: Urine Test (obtain specimen); Complete Time: 08:15 [facility] 01/16 08:36 Order name: Throat Culture EDMS Administered Medications: 08:06 Drug: Zithromax (azithromycin) 500 mg Route: PO; jg9 Point of Care Testing: Urine : 08:15 hCG Reading: Negative; Control Reading: Positive; jg9 Disposition Summary: 01/16/22 08:56 Discharge Ordered Location: Home [facility] Problem: new tami Symptoms: have improved tami Condition: Stable tami Diagnosis - Acute pharyngitis, unspecified tami - UTI/ Urinary tract infection, site not specified tami Followup: tami - With: Private Physician - When: 2 - 3 days - Reason: Recheck today's complaints, Continuance of care, Re-evaluation by your physician Discharge Instructions: - Discharge Summary Sheet tami - Pharyngitis tami - Sore Throat tami - Urinary Tract Infection, Adult tami - Urinary Tract Infection, Adult, [id number] tami Forms: - Medication Reconciliation Form tami - Thank You Letter tami - Antibiotic Education tami - Prescription Opioid Use [facility] - Work release form 6 Prescriptions: - Augmentin 875-125 mg Oral Tablet - take 1 tablet by ORAL route every 12 hours for 7 days; 14 tablet; Refills: 0, tami Product Selection Permitted Signatures: Dispatcher [employer] Jairo Oates MD MD cha Gilmore, Jennifer RN RN jg9 Alana Bowser RN RN bh1 Corrections: (The following items were deleted from the chart) 06:53 06:52 Home Meds: cilazapril; [place] [id number] 06:53 06:52 Home Meds: Keppra Oral; [place] [id number]
--- NOTE | 2022-01-16 08:57 | ER ---
Nurse's Notes [facility] Name: Radha Louis Age: 36 yrs Sex: Female : 1985 Arrival Date: 01/16/2022 Time: 06:42 Bed 7 Private MD: Diagnosis: Acute pharyngitis, unspecified;UTI/ Urinary tract infection, site not specified Presentation: 01/16 06:50 Chief complaint: Patient states: SORE THROAT SINCE YESTERDAY WITH SINUS DRAINAGE. [facility] Coronavirus screen: Vaccine status: Patient reports being unvaccinated. congestion, sore throat, Client presents with at least one sign or symptom that may indicate coronavirus-19. Standard/surgical mask placed on the client. Ebola Screen: Patient negative for fever greater than or equal to 101.5 degrees Fahrenheit, and additional compatible Ebola Virus Disease symptoms. Initial Sepsis Screen: Does the patient meet any 2 criteria? No. Patient's initial sepsis screen is negative. Does the patient have a suspected source of infection? No. Patient's initial sepsis screen is negative. Risk Assessment: Do you want to hurt yourself or someone else? Patient reports no desire to harm self or others. Onset of symptoms was January 15, 2022. 06:50 Method Of Arrival: Ambulatory [facility] 06:50 Acuity: WAYLON 4 [facility] Triage Assessment: 06:53 General: Appears in no apparent distress. Behavior is calm, cooperative, appropriate [facility] for age. Pain: Complains of pain in uvula, left aspect of posterior pharynx and right aspect of posterior pharynx. EENT: Reports pain when swallowing. 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 - Social history:: Smoking status: Patient denies any tobacco usage or history of. - Family history:: not pertinent. Screenin:30 Abuse screen: Denies threats or abuse. Denies injuries from another. Nutritional jg9 screening: No deficits noted. Tuberculosis screening: No symptoms or risk factors identified. Fall Risk None identified. Assessment: 07:30 Respiratory: Airway is patent Respiratory effort is even, unlabored, Breath sounds are jg9 clear bilaterally. EENT: Throat is reddened. Vital Signs: 06:50 BP 115 / 87; Pulse 61; Resp 18; Temp 97.7(TE); Pulse Ox 100% ; Weight 70.31 kg; Height [facility] 5 ft. 6 in. (167.64 cm); Pain 7/10; 08:55 BP 122 / 84; Pulse 52; Resp 14 S; Pulse Ox 99% ; jg9 06:50 Body Mass Index 25.02 (70.31 kg, 167.64 cm) [facility] ED Course: 06:42 Patient arrived in ED. [facility] 06:52 Triage completed. [facility] 06:53 Arm band placed on right wrist. [facility] 06:54 Melba Hunter, RN is Primary Nurse. 3 07:23 Jairo Ramirez MD is Attending Physician. [facility] 07:30 Patient has correct armband on for positive identification. Bed in low position. Call jg9 light in reach. 09:25 No provider procedures requiring assistance completed. Patient did not have IV access jl7 during this emergency room visit. Administered Medications: 08:06 Drug: Zithromax (azithromycin) 500 mg Route: PO; jg9 Medication: 09:26 VIS not applicable for this client. jl7 Point of Care Testing: Urine : 08:15 hCG Reading: Negative; Control Reading: Positive; jg9 Outcome: 08:56 Discharge ordered by . [facility] 09:25 Discharged to home ambulatory. 7 09:25 Condition: stable 09:25 Discharge instructions given to patient, Instructed on discharge instructions, follow up and referral plans. medication usage, Demonstrated understanding of instructions, follow-up care, medications, Prescriptions given X 1. 09:26 Patient left the ED. jl7 Signatures: Jairo Ramirez MD MD cha Leal, Jahala RN RN jl7 Mare Donahue 2 Melba Hunter, RN MAGDA [id number] Charmaine Thompson RN RN jg9 Alana Bowser RN RN [facility] Corrections: (The following items were deleted from the chart) 06:53 06:52 Home Meds: cilazapril; [place] [id number] 06:53 06:52 Home Meds: Keppra Oral; [place] [id number] 06:54 06:53 LMP 01/03/2022 [place] [id number]
[2022-01-16 09:21] LABS: Urine Specific Gravity/Preg 1.025 (1.005-1.030)
[2022-01-16 09:33] VITALS: TEMP 97.7
[2022-01-16 09:35] VITALS: BP 122/84; O2SAT 99
== END 2022-01-16 09:26 | disposition home or self-care (01) ==
LOC: ER 06:37
DX: J02.9 Acute pharyngitis, unspecified (principal); N39.0 Urinary tract infection, site not specified; Z20.822 Contact with and (suspected) exposure to COVID-19
CPT/HCPCS: 36415; 81003; 81025; 87070; 87081; 87804; 87811; 99283

== ENCOUNTER 2022-06-26 01:04 | Emergency (ER) | payer BC ==
[2022-06-26] MEDS ORDERED: AZITHROMYCIN 250 MG TAB ONE (02:08)
[2022-06-26 03:26] LABS: SARS-COV-2 RT PCR NEGATIVE (NEGATIVE)
--- NOTE | 2022-06-26 03:33 | EDPHYS ---
Physician Documentation [facility] Name: Radha Louis Age: 37 yrs Sex: Female : 1985 Arrival Date: 06/26/2022 Time: 01:08 Bed 28 Private MD: ED Physician Jairo Ramirez HPI: 06/26 02:10 This 37 yrs old Female presents to ER via Ambulatory with complaints of Fever, tami Cough, Sore Throat, Congestion. 02:10 The patient reports fever, that was measured at 98.8 degrees Fahrenheit. Onset: The tami symptoms/episode began/occurred 2 day(s) ago. Modifying factors: there are no obvious modifying factors. Associated signs and symptoms: Pertinent positives: cough, runny nose, sinus congestion, sinus drainage. Severity of symptoms: At their worst the symptoms were mild moderate in the emergency department the symptoms are unchanged. The patient has experienced similar episodes in the past, a few times. 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 - Social history:: Smoking status: Patient denies any tobacco usage or history of. ROS: 02:13 Constitutional: Negative for fever, chills, and weight loss, Eyes: Negative for injury, tami pain, redness, and discharge, Neck: Negative for injury, pain, and swelling, Cardiovascular: Negative for chest pain, palpitations, and edema, Abdomen/GI: Negative for abdominal pain, nausea, vomiting, diarrhea, and constipation, Back: Negative for injury and pain, : Negative for injury, bleeding, discharge, and swelling, MS/Extremity: Negative for injury and deformity, Skin: Negative for injury, rash, and discoloration, Neuro: Negative for headache, weakness, numbness, tingling, and seizure. 02:13 ENT: Positive for rhinorrhea, sinus congestion, sore throat. 02:13 Respiratory: Positive for cough, with no reported sputum. Exam: 02:13 Constitutional: This is a well developed, well nourished patient who is awake, alert, tami and in no acute distress. Head/Face: Normocephalic, atraumatic. Eyes: Pupils equal round and reactive to light, extra-ocular motions intact. Lids and lashes normal. Conjunctiva and sclera are non-icteric and not injected. Cornea within normal limits. Periorbital areas with no swelling, redness, or edema. Neck: Trachea midline, no thyromegaly or masses palpated, and no cervical lymphadenopathy. Supple, full range of motion without nuchal rigidity, or vertebral point tenderness. No Meningismus. Chest/axilla: Normal chest wall appearance and motion. Nontender with no deformity. No lesions are appreciated. Cardiovascular: Regular rate and rhythm with a normal S1 and S2. No gallops, murmurs, or rubs. Normal PMI, no JVD. No pulse deficits. Respiratory: Lungs have equal breath sounds bilaterally, clear to auscultation and percussion. No rales, rhonchi or wheezes noted. No increased work of breathing, no retractions or nasal flaring. Abdomen/GI: Soft, non-tender, with normal bowel sounds. No distension or tympany. No guarding or rebound. No evidence of tenderness throughout. Back: No spinal tenderness. No costovertebral tenderness. Full range of motion. Skin: Warm, dry with normal turgor. Normal color with no rashes, no lesions, and no evidence of cellulitis. MS/ Extremity: Pulses equal, no cyanosis. Neurovascular intact. Full, normal range of motion. Neuro: Awake and alert, GCS 15, oriented to person, place, time, and situation. Cranial nerves II-XII grossly intact. Motor strength 5/5 in all extremities. Sensory grossly intact. Cerebellar exam normal. Normal gait. Psych: Awake, alert, with orientation to person, place and time. Behavior, mood, and affect are within normal limits. 02:13 ENT: Nose: nasal drainage, that is minimal, and is seen coming from both nares, Posterior pharynx: Airway: normal, no evidence of obstruction, Tonsils: bilaterally enlarged, with erythema, Uvula: normal, swelling, is not appreciated, erythema, is not appreciated, exudate, is not appreciated. Vital Signs: 01:39 Weight 70.31 kg; Height 4 ft. 6 in. (137.16 cm); Pain 10/10; vc1 01:45 BP 129 / 86; Pulse 77; Resp 18; Temp 98.8(O); Pulse Ox 100% ; vc1 03:52 BP 119 / 80; Pulse 80; Resp 16 S; Temp 98.3(O); Pulse Ox 98% on R/A; bb 01:39 Body Mass Index 37.37 (70.31 kg, 137.16 cm) vc1 MDM: 01:08 Patient medically screened. [facility] 02:15 Differential diagnosis: viral Infection, bacterial infection, URI, bronchitis, tami pneumonia UTI, gastroenteritis. Differential Diagnosis flu, Obstructed Airway Bronchitis Influenza Upper Respiratory Infection Pharyngitis Viral Syndrome Pneumonia. Data reviewed: vital signs, nurses notes, lab test result(s), radiologic studies, plain films. Data interpreted: front desk monitor: rate is 77 beats/min, rhythm is regular, Pulse oximetry: on room air is 100 %. Test interpretation: by ED physician or midlevel provider: plain radiologic studies. Counseling: I had a detailed discussion with the patient and/or guardian regarding: the historical points, exam findings, and any diagnostic results supporting the discharge/admit diagnosis, lab results, radiology results, the need for outpatient follow up, for definitive care, a family practitioner. 06/26 01:13 Order name: Strep; Complete Time: 03:20 [facility] 06/26 01:13 Order name: COVID-19/FLU A+B; Complete Time: 03:31 [facility] 06/26 01:13 Order name: Chest Pa And Lat (2 Views) XRAY [facility] 06/26 03:20 Order name: Throat Culture EDMS Administered Medications: 02:07 Drug: Zithromax (azithromycin) 500 mg Route: PO; ll3 03:13 Follow up: Response: No adverse reaction bb Disposition Summary: 06/26/22 03:32 Discharge Ordered Location: Home tami Problem: new tami Symptoms: have improved tami Condition: Stable tami Diagnosis - Cough tami - Acute upper respiratory infection, unspecified tami Followup: tami - With: Private Physician - When: 2 - 3 days - Reason: Recheck today's complaints, Re-evaluation by your physician Discharge Instructions: - Discharge Summary Sheet tami - Upper Respiratory Infection, Adult tami - Cool Mist Vaporizer tami - Upper Respiratory Infection, Adult, [id number] tami - Cough, Adult, [id number] tami - Cough, Adult tami Forms: - Medication Reconciliation Form tami - Thank You Letter tami - Antibiotic Education tami - Prescription Opioid Use tami - Work release form bb Prescriptions: - Tessalon Perles 100 mg Oral Capsule - take 2 capsule by ORAL route every 8 hours As needed; 45 capsule; Refills: 0, tami Product Selection Permitted - Zithromax Z-Amadeo 250 mg Oral Tablet - take 1 tablet by ORAL route as directed for 5 days Day 1 - take two (2) tablets tami one time. Day 2, 3, 4 , 5 take one (1) tablet once daily.; 6 tablet; Refills: 0, Product Selection Permitted - Medrol (Amadeo) 4 mg Oral Tablets, Dose Pack - take 1 tablet by ORAL route as directed - follow package instructions; 1 tami packet; Refills: 0, Product Selection Permitted Signatures: Dispatcher [employer] Jairo Oates MD MD cha Loubet, Lynsea RN RN ll3 Sravanthi Moreira RN RN vc1 Molly Kessler RN bb
--- NOTE | 2022-06-26 03:33 | ER ---
Nurse's Notes [facility] Name: Radha Louis Age: 37 yrs Sex: Female : 1985 Arrival Date: 06/26/2022 Time: 01:08 Bed 28 Private MD: Diagnosis: Cough;Acute upper respiratory infection, unspecified Presentation: 06/26 01:39 Chief complaint: Patient states: "I'm was running a 103 temperature, having body aches, vc1 itchy ears and a itchy throat. I am also coughing.". Coronavirus screen: Vaccine status: Patient reports being unvaccinated. Ebola Screen: No symptoms or risks identified at this time. Risk Assessment: Do you want to hurt yourself or someone else? Patient reports no desire to harm self or others. Onset of symptoms was June 25, 2022. 01:39 Method Of Arrival: Ambulatory vc1 01:39 Acuity: WAYLON 3 vc1 Triage Assessment: 01:43 General: Appears in no apparent distress. uncomfortable, ill, Behavior is calm, vc1 cooperative, appropriate for age. Pain: Complains of pain in body aches and throat Pain does not radiate. Pain currently is 10 out of 10 on a pain scale. EENT: Reports difficulty swallowing pain when swallowing. Neuro: Level of Consciousness is awake, alert, obeys commands, Oriented to person, place, time, situation, Appropriate for age. Cardiovascular: No deficits noted. Respiratory: Reports cough that is Airway is patent Respiratory effort is even, unlabored, Respiratory pattern is regular, symmetrical. GI: No deficits noted. No signs and/or symptoms were reported involving the gastrointestinal system. : No deficits noted. No signs and/or symptoms were reported regarding the genitourinary system. Derm: No deficits noted. No signs and/or symptoms reported regarding the dermatologic system. Musculoskeletal: No deficits noted. No signs and/or symptoms reported regarding the musculoskeletal system. 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 - Social history:: Smoking status: Patient denies any tobacco usage or history of. Screenin:44 [facility] ED Fall Risk Assessment (Adult) History of falling in the last 3 months, vc1 including since admission No falls in past 3 months (0 pts) Confusion or Disorientation No (0 pts) Intoxicated or Sedated No (0 pts) Impaired Gait No (0 pts) Mobility Assist Device Used No (0 pt) Altered Elimination No (0 pt). Abuse screen: Denies threats or abuse. Nutritional screening: No deficits noted. Tuberculosis screening: No symptoms or risk factors identified. Assessment: 02:00 General: Appears in no apparent distress. Behavior is calm, cooperative. Neuro: Level bb of Consciousness is awake, alert, obeys commands, Oriented to person, place, time, situation. Cardiovascular: Capillary refill < 3 seconds Patient's skin is warm and dry. Respiratory: Respiratory effort is unlabored. GI: No signs and/or symptoms were reported involving the gastrointestinal system. Derm: Skin is dry, Skin is normal, Skin temperature is warm. Musculoskeletal: Circulation, motion, and sensation intact. 03:51 Reassessment: Patient is alert, oriented x 3, equal unlabored respirations, skin bb warm/dry/pink. pt verbalized understanding of and agrees to plan of care discharge instructions given pt ambulated with steady gait to exit accompanied by spouse. Vital Signs: 01:39 Weight 70.31 kg; Height 4 ft. 6 in. (137.16 cm); Pain 10/10; vc1 01:45 BP 129 / 86; Pulse 77; Resp 18; Temp 98.8(O); Pulse Ox 100% ; vc1 03:52 BP 119 / 80; Pulse 80; Resp 16 S; Temp 98.3(O); Pulse Ox 98% on R/A; bb 01:39 Body Mass Index 37.37 (70.31 kg, 137.16 cm) vc1 ED Course: 01:08 Patient arrived in ED. [email or web address] 01:08 Jairo Ramirez MD is Attending Physician. tami 01:42 Triage completed. vc1 01:44 Arm band placed on right wrist. vc1 02:00 Patient has correct armband on for positive identification. Adult w/ patient. bb 02:02 Chest Pa And Lat (2 Views) XRAY In Process Unspecified. EDMS 02:07 COVID-19/FLU A+B Sent. ll3 02:07 Strep Sent. ll3 02:59 Molly Kessler, RN is Primary Nurse. bb 03:53 No provider procedures requiring assistance completed. Patient did not have IV access bb during this emergency room visit. Administered Medications: 02:07 Drug: Zithromax (azithromycin) 500 mg Route: PO; ll3 03:13 Follow up: Response: No adverse reaction bb Medication: 01:45 VIS not applicable for this client. vc1 Outcome: 03:32 Discharge ordered by . tami 03:53 Discharged to home ambulatory, with family. bb 03:53 Condition: stable 03:53 Discharge instructions given to patient, Instructed on discharge instructions, follow up and referral plans. medication usage, Demonstrated understanding of instructions, follow-up care, medications, Prescriptions given X 3. 03:53 Patient left the ED. bb Signatures: Dispatcher [employer] EDMS Jairo Ramirez MD MD cha Ballard, Brenda, RN RN bb Charmaine [id number] Talha Valadez RN RN ll3 Sravanthi Moreira RN RN vc1
[2022-06-26 04:01] VITALS: BP 119/80; TEMP 98.3; O2SAT 98
--- NOTE | 2022-06-26 15:08 | RAD REPORT ---
EXAM DESCRIPTION: RAD - Chest Pa And Lat (2 Views) - 06/26/2022 2:01 am CLINICAL HISTORY: 37 years, Female, COUGH COMPARISON: None FINDINGS: 2 x-ray views of the chest (PA and lateral) were obtained, no prior films are available th is time for comparison. The cardiomediastinal silhouette demonstrate to be within normal limits. Th e heart is not enlarged. The thoracic aorta is unremarkable. The pulmonary vasculature is normal dist ribution. Costophrenic angles are sharp. No areas of consolidations or masses are identified. The rest of the soft tissue and bony structures are unremarkable. IMPRESSION: No acute cardiopulmonary disease identified. 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 The interpreting radiologist is fully responsible for the content of the report.
== END 2022-06-26 03:53 | disposition home or self-care (01) ==
LOC: ER 01:04
DX: J06.9 Acute upper respiratory infection, unspecified (principal); Z20.822 Contact with and (suspected) exposure to COVID-19
CPT/HCPCS: 87070; 87081; 0240U; 71046; Q0144; 99284